=== PATIENT | female | born 1955 | race Two or more races ===

== ENCOUNTER 2022-12-19 11:59 | Inpatient (IN) | payer OTHER ==
[~2022-12-19] VITALS: Ht 170.2 cm; Wt 95.3 kg
[2022-12-19] MEDS ORDERED: SODIUM CHLORIDE 0.9% 1,000 ML IV ONE ×2 (13:45)
[2022-12-19] MEDS ORDERED: CLINDAMYCIN 600MG IV 50 ML IV ONE (13:45)
[2022-12-19] MEDS ORDERED: cefTRIAXone 1GM/50ML D5W 50 ML IV ONE (13:45)
[2022-12-19 14:59] LABS: Basophils # (auto) 0.1 10 ^3/uL (0-0.2); Basophils % (auto) 0.9 % (0.0-2.0); Eosinophils # (auto) 0.1 10 ^3/uL (0-0.8); Eosinophils % (auto) 1.1 % (0.0-7.0); Hemoglobin 12.8 g/dL (12.2-16.2); Lymphocytes # (auto) 1.8 10 ^3/uL (0.4-5.4); Lymphocytes % (auto) 21.5 % (10.0-50.0); Mean Corpuscular Hemoglobin 29.9 pg (28.0-32.0); Mean Corpuscular Hgb Conc. 33.7 g/dL (32.0-36.0); Mean Corpuscular Volume 88.7 fL (80.0-100.0); Monocytes # (auto) 0.6 10 ^3/uL (0-1.3); Monocytes % (auto) 7.8 % (0.0-12.0); Neutrophils # (auto) 5.7 10 ^3/uL (1.6-8.6); Neutrophils % (auto) 68.7 % (37.0-80.0); Nucleated Red Blood Cells % 0.2 %; Red Blood Cells 4.29 10^6/uL (4.0-5.20); Red Cell Distribution Width 14.8 % (11.8-14.3); White Blood Cell 8.2 10^3/uL (4.4-10.8)
[2022-12-19 15:20] LABS: Albumin 3.4 g/dL (3.4-5.0); Calcium 8.8 mg/dL (8.5-10.1); Potassium 3.4 mmol/L (3.5-5.1)
[2022-12-19 15:25] LABS: BUN/Creatinine Ratio 48.3 (10.0-20.0); Bilirubin, Total 0.7 mg/dL (0.2-1.0); Total Protein 6.1 g/dL (6.4-8.2)
[2022-12-19] MEDS ORDERED: MORPHINE SULFATE INJ 2 MG/ml SYRG IV PRN (16:15)
[2022-12-19] MEDS ORDERED: NITROGLYCERIN 0.4 MG SL TAB SL PRN (16:15)
[2022-12-19] MEDS ORDERED: IOHEXOL 350 MG/ML 100ML IJ ONE (16:21)
[2022-12-19 17:00] LABS: Cholesterol 199 mg/dL (< 200)
[2022-12-19 17:03] LABS: HDL Cholesterol 46 mg/dL (40-59); LDL Cholesterol 129 mg/dL (< 100); Triglycerides 155 mg/dL (< 150)
[2022-12-19] MEDS: CLINDAMYCIN 600MG IV 50 ML IV SCH (23:57)
[2022-12-20] MEDS: CLINDAMYCIN 600MG IV 50 ML IV SCH ×3 (05:28→21:04)
[2022-12-20 06:26] LABS: Basophils # (auto) 0 10 ^3/uL (0-0.2); Basophils % (auto) 0.5 % (0.0-2.0); Eosinophils # (auto) 0.1 10 ^3/uL (0-0.8); Eosinophils % (auto) 2.1 % (0.0-7.0); Hemoglobin 11.3 g/dL (12.2-16.2); Lymphocytes # (auto) 1.2 10 ^3/uL (0.4-5.4); Lymphocytes % (auto) 22.3 % (10.0-50.0); Mean Corpuscular Hemoglobin 30.3 pg (28.0-32.0); Mean Corpuscular Hgb Conc. 34.2 g/dL (32.0-36.0); Mean Corpuscular Volume 88.6 fL (80.0-100.0); Monocytes # (auto) 0.5 10 ^3/uL (0-1.3); Monocytes % (auto) 9.7 % (0.0-12.0); Neutrophils # (auto) 3.6 10 ^3/uL (1.6-8.6); Neutrophils % (auto) 65.4 % (37.0-80.0); Nucleated Red Blood Cells % 0.1 %; Red Blood Cells 3.73 10^6/uL (4.0-5.20); Red Cell Distribution Width 14.5 % (11.8-14.3); White Blood Cell 5.5 10^3/uL (4.4-10.8)
[2022-12-20 06:45] LABS: Albumin 2.7 g/dL (3.4-5.0); Calcium 8.3 mg/dL (8.5-10.1)
[2022-12-20 06:52] LABS: BUN/Creatinine Ratio 43.8 (10.0-20.0); Bilirubin, Total 0.6 mg/dL (0.2-1.0); Total Protein 5.3 g/dL (6.4-8.2)
[2022-12-20 06:57] LABS: Urine Bacteria NONE SEEN /hpf (None Seen); Urine Blood 2+ /uL (Negative); Urine Mucus FEW (None Seen); Urine Specific Gravity 1.035 (1.001-1.035); Urine WBC 707 /hpf (0 - 5)
[2022-12-20] MEDS: cefTRIAXone 1GM/50ML D5W 50 ML IV SCH (09:56)
[2022-12-20] MEDS: ENOXAPARIN SOD 40 MG/0.4 ML SYRINGE SC SCH (10:00)
[2022-12-20 11:04] VITALS: BP 128/59
[2022-12-20] MEDS ORDERED: FUR20T PO (11:36)
[2022-12-20] MEDS ORDERED: MIRA25TA PO (11:36)
[2022-12-20 17:00] VITALS: BP 144/53
[2022-12-20] MEDS ORDERED: MORPHINE SULFATE INJ 2 MG/ml SYRG IV ONE (18:15)
[2022-12-20 20:00] VITALS: BP 122/62
[2022-12-20 22:30] VITALS: BP 122/62
[2022-12-21] MEDS: CLINDAMYCIN 600MG IV 50 ML IV SCH (05:08)
[2022-12-21 05:11] VITALS: BP 135/57
[2022-12-21 07:50] VITALS: BP 115/47
[2022-12-21] MEDS: cefTRIAXone 1GM/50ML D5W 50 ML IV SCH (10:34)
[2022-12-21] MEDS: ENOXAPARIN SOD 40 MG/0.4 ML SYRINGE SC SCH (10:35)
[2022-12-21 13:00] VITALS: BP 130/54
[2022-12-21] MEDS: CLINDAMYCIN 900MG IV 50 ML IV SCH ×2 (16:49→21:20)
[2022-12-21 17:30] VITALS: BP 130/65
[2022-12-21 22:00] VITALS: BP 129/68
[2022-12-22 05:00] VITALS: BP 144/74
[2022-12-22 08:00] VITALS: BP 140/70
[2022-12-22] MEDS: cefTRIAXone 1GM/50ML D5W 50 ML IV SCH (08:20)
[2022-12-22 09:00] VITALS: BP 140/70
[2022-12-22] MEDS: CLINDAMYCIN 900MG IV 50 ML IV SCH ×2 (09:33→22:00)
[2022-12-22] MEDS: ENOXAPARIN SOD 40 MG/0.4 ML SYRINGE SC SCH (09:34)
[2022-12-22 13:00] VITALS: BP 148/63
[2022-12-22 17:00] VITALS: BP 126/57
[2022-12-22] MEDS ORDERED: MULT-1018 PO (18:43)
[2022-12-22] MEDS ORDERED: NAP500T PO (18:43)
[2022-12-22] MEDS ORDERED: ATOR10TA PO (18:43)
[2022-12-22] MEDS ORDERED: GABA300C10 PO (18:43)
[2022-12-22] MEDS ORDERED: BACL10TA PO (18:43)
[2022-12-22 22:00] VITALS: BP 139/52
[2022-12-23] MEDS: ACETAMINOPHEN 325 MG TAB PO PRN (04:16)
[2022-12-23 05:00] VITALS: BP 147/76
[2022-12-23 09:03] VITALS: BP 146/80
[2022-12-23] MEDS: ENOXAPARIN SOD 40 MG/0.4 ML SYRINGE SC SCH (09:14)
[2022-12-23] MEDS: cefTRIAXone 1GM/50ML D5W 50 ML IV SCH (09:14)
[2022-12-23] MEDS: levoFLOXacin 500MG 100 ML IV SCH (10:20)
[2022-12-23 22:00] VITALS: BP 117/57
[2022-12-24 05:00] VITALS: BP 134/58
[2022-12-24 09:00] VITALS: BP 151/65
[2022-12-24] MEDS: ENOXAPARIN SOD 40 MG/0.4 ML SYRINGE SC SCH (09:36)
[2022-12-24] MEDS: levoFLOXacin 500MG 100 ML IV SCH (09:36)
[2022-12-24 13:00] VITALS: BP 128/37
[2022-12-24 16:44] VITALS: BP 157/56
[2022-12-24] MEDS: ACETAMINOPHEN 325 MG TAB PO PRN (20:12)
[2022-12-24 22:00] VITALS: BP 118/70
[2022-12-25 05:00] VITALS: BP 162/91
[2022-12-25] MEDS: ENOXAPARIN SOD 40 MG/0.4 ML SYRINGE SC SCH (08:24)
[2022-12-25] MEDS: ACETAMINOPHEN 325 MG TAB PO PRN (08:24)
[2022-12-25 08:54] VITALS: BP 146/70
[2022-12-25] MEDS: levoFLOXacin 500MG 100 ML IV SCH (10:00)
[2022-12-25] MEDS ORDERED: LEVO750T8 PO (10:09)
[2022-12-25] MEDS ORDERED: LINE1TAB6 PO (10:09)
[2022-12-25 15:49] VITALS: BP 149/70
[2022-12-25 16:03] VITALS: BP 149/70
== END 2022-12-25 16:53 | disposition home or self-care (01) | DRG 592 ==
LOC: ER 11:59 → TELE 16:17 → TELE-CENTR 12-20 10:13
PROVIDERS: ADMIT Registered Nurse; ATTEND Family Medicine
DX: L89.322 Pressure ulcer of left buttock, stage 2 (principal); G93.41 Metabolic encephalopathy; L03.317 Cellulitis of buttock; N39.0 Urinary tract infection, site not specified; E78.5 Hyperlipidemia, unspecified; G43.909 Migraine, unspecified, not intractable, without status migrainosus; G35 Multiple sclerosis; E04.1 Nontoxic single thyroid nodule; F17.200 Nicotine dependence, unspecified, uncomplicated; B95.61 Methicillin susceptible Staphylococcus aureus infection as the cause of diseases classified elsewhere; B96.20 Unspecified Escherichia coli [E. coli] as the cause of diseases classified elsewhere; R29.6 Repeated falls; Z99.3 Dependence on wheelchair; Z90.710 Acquired absence of both cervix and uterus; Z88.0 Allergy status to penicillin
CPT/HCPCS: 36415; 71045; 71275; 74176; 76536; 80053; 80061; 81001; 83036; 83880; 84443; 84484; 85025; 85379; 87040; 87077; 87086; 87186; 87205; 93970; 96365; 96368; 97110; 97116; 97163; 97530; G0378; J0696; J1956; J3490